=== PATIENT | male | born 1980 | race African-American/Black ===

== ENCOUNTER 2019-01-30 02:08 | Inpatient (IN) | payer MEDICAID ==
[~2019-01-30] VITALS: Ht 188 cm; Wt 83.5 kg
[2019-01-30] VITALS (7 sets, daily range): BP systolic 120–138; BP diastolic 65–77
[2019-01-30] MEDS ORDERED: METHYLPREDNISOLONE SOD SUCC 125 MG/2 ML VIAL IV ONE (05:00)
[2019-01-30] MEDS ORDERED: MORPHINE SULFATE 4 MG/ML CPJ (NOT FOR IM USE) IV ONE (05:00)
[2019-01-30 05:06] LABS: BASOPHILS % 0.4 % (0.0-2.0); EOSINOPHILS % 0.4 % (0.0-5.0); MEAN CORPUSCULAR HEMOGLOBIN 25.8 pg (28.0-32.0); MEAN PLATELET VOLUME 6.4 fl (7.4-10.4); MONOCYTES % 9.3 % (2.0-8.0); NEUTROPHILS % 61.9 % (40.0-76.0); PLATELET 239 x1000/uL (130-400); RED BLOOD CELL COUNT 5.44 mill/uL (4.7-6.1)
[2019-01-30 05:14] LABS: INR 1.1; PARTIAL THROMBOPLASTIN TIME 31.4 sec (23.4-31.0); PROTHROMBIN TIME 11.8 sec (9.6-11.0)
[2019-01-30 05:18] LABS: CHLORIDE 107 mEq/L (98-107)
[2019-01-30] MEDS ORDERED: ASPIRIN 325MG EC TABLET PO ONE (07:15)
[2019-01-30 07:50] LABS: CLARITY URINE CLEAR (CLEAR); COLOR URINE YELLOW (YELLOW); KETONES URINE TRACE (NEGATIVE); LEUKOCYTE ESTERASE URINE NEGATIVE (NEGATIVE); NITRITE URINE NEGATIVE (NEGATIVE); OCCULT BLOOD URINE NEGATIVE (NEGATIVE); PH URINE 6.5 (4.5-8.0); PROTEIN URINE NEGATIVE (NEGATIVE); SPECIFIC GRAVITY URINE 1.025 (1.005-1.030)
[2019-01-30] MEDS ORDERED: IPRATROPIUM/ALBUTEROL 0.5-3(2.5)MG/3ML NEB INH PRN (10:45)
[2019-01-30] MEDS ORDERED: ONDANSETRON HCL 4MG/2ML INJ IV PRN (10:45)
[2019-01-30] MEDS ORDERED: LORAZEPAM 0.5MG TABLET PO PRN (10:45)
[2019-01-30] MEDS ORDERED: CLONIDINE 0.1MG TABLET PO PRN (10:45)
[2019-01-30] MEDS ORDERED: TRAMADOL 50MG TABLET PO PRN (10:45)
[2019-01-30] MEDS ORDERED: MAGNESIUM/ALUMINUM HYDROXIDE/SIMETHICONE 30ML UDC PO PRN (10:45)
[2019-01-30] MEDS ORDERED: ACETAMINOPHEN 325MG TABLET PO PRN (10:45)
[2019-01-30] MEDS ORDERED: KETOROLAC 30MG/ML VIAL IV PRN (10:45)
[2019-01-30] MEDS ORDERED: GUAIFENESIN 200MG/10ML SUGAR FREE UDC PO PRN (10:45)
[2019-01-30] MEDS ORDERED: DOCUSATE SODIUM 100MG CAPSULE PO PRN (10:45)
[2019-01-30] MEDS: BACLOFEN 20MG TABLET PO SCH ×2 (13:19→20:53)
[2019-01-30] MEDS: FAMOTIDINE 20MG TABLET PO SCH ×2 (13:19→20:53)
[2019-01-30 13:47] LABS: *AMPHETAMINES SCREEN URINE NEGATIVE (NEGATIVE)
[2019-01-30 13:48] LABS: *BARBITURATES SCREEN URINE NEGATIVE (NEGATIVE); *BENZODIAZEPINES SCREEN URINE NEGATIVE (NEGATIVE); *COCAINE SCREEN URINE NEGATIVE (NEGATIVE); METHADONE URINE SCREEN NEGATIVE (NEGATIVE); OPIATES URINE SCREEN PRESUMTIVE POSITIVE (NEGATIVE)
[2019-01-30 13:49] LABS: CANNABINOID URINE SCREEN NEGATIVE (NEGATIVE); PHENCYCLIDINE URINE SCREEN NEGATIVE (NEGATIVE)
[2019-01-30 16:42] LABS: CREATINE KINASE 103 IU/L (39-308)
[2019-01-30 16:43] LABS: CREATINE KINASE MB FRACTION < 1.0 ng/mL (0.5-3.6)
[2019-01-30] MEDS: ZOLPIDEM TARTRATE 5MG TABLET PO PRN (22:09)
[2019-01-30 23:06] LABS: CREATINE KINASE 85 IU/L (39-308)
[2019-01-30 23:07] LABS: CREATINE KINASE MB FRACTION < 1.0 ng/mL (0.5-3.6)
[2019-01-31] VITALS (12 sets, daily range): BP systolic 111–164; BP diastolic 64–112
[2019-01-31] MEDS: BACLOFEN 20MG TABLET PO SCH ×3 (06:42→20:33)
[2019-01-31] MEDS: FAMOTIDINE 20MG TABLET PO SCH ×2 (08:37→20:34)
[2019-01-31] MEDS: SODIUM CHLORIDE 0.9% 1,000 ML IV SCH ×2 (11:45→20:34)
[2019-01-31] MEDS: ZOLPIDEM TARTRATE 5MG TABLET PO PRN (22:14)
[2019-02-01] VITALS (8 sets, daily range): BP systolic 107–129; BP diastolic 60–76
[2019-02-01] MEDS: BACLOFEN 20MG TABLET PO SCH (05:36)
[2019-02-01] MEDS: SODIUM CHLORIDE 0.9% 1,000 ML IV SCH (07:45)
[2019-02-01] MEDS: FAMOTIDINE 20MG TABLET PO SCH (09:01)
== END 2019-02-01 12:30 | disposition home or self-care (01) | DRG 203 ==
LOC: ER 02:08 → 5EST 06:41 → ENRESERV 07:11
PROVIDERS: ADMIT Internal Medicine; ATTEND Internal Medicine
DX: R07.89 Other chest pain (principal); G70.00 Myasthenia gravis without (acute) exacerbation; M54.9 Dorsalgia, unspecified
CPT/HCPCS: 36415; 71045; 72148; 80061; 80305; 82550; 82553; 83036; 83880; 84484; 93005; 96374; 96375; 97162; 97165; 99285; J2270; J2930; J7030